=== PATIENT | female | born 1965 ===

== ENCOUNTER 2025-04-02 06:23 | Day surgery (SDC) | payer BC, SELFPAY | END 2025-04-02 09:42 | disposition home or self-care (01) | LOC: GI 06:23 | PROVIDERS: ATTENDING PHYSICIAN Internal Medicine | DX: K21.9 Gastro-esophageal reflux disease without esophagitis (principal); K22.89 Other specified disease of esophagus; K44.9 Diaphragmatic hernia without obstruction or gangrene; K31.7 Polyp of stomach and duodenum; K29.70 Gastritis, unspecified, without bleeding; K31.A0 Gastric intestinal metaplasia, unspecified | CPT/HCPCS: 43251; 43239; 88305; 88342 ==